=== PATIENT | female | born 1960 ===

== ENCOUNTER 2017-01-26 09:11 | Emergency (ER) | payer MEDICAID, OTHER ==
[2017-01-26 09:27] VITALS: TEMP 98.5; O2SAT 99
--- NOTE | 2017-01-26 11:15 | ED PDOC ---
Lower Extremity Pain/Injury Time Seen by Provider: 01/26/17 10:47 Chief Complaint (Nursing): Lower Extremity Problem/Injury Chief Complaint (Provider): leg pain History Per: Patient History/Exam Limitations: no limitations Additional Complaint(s): 56yo F in ED with of HTN and arthritis for eval of acute right sided post. knee pain x 4d worsening in intensity preventing her from walking admits to swelling . denies SOB, CP,discoloration to leg. denies bleeding d/o, denies hormone replacement tx, denies recent surgery, denies recent trauma to leg. - Risk Factors DVT Risk Factors: Pos: None Past Medical History Reviewed: Historical Data, Nursing Documentation, Vital Signs Vital Signs: Last Vital Signs Temp 98.5 F 01/26/17 09:25 Pulse 70 01/26/17 09:25 Resp 19 01/26/17 09:25 BP 120/76 01/26/17 09:25 Pulse Ox 99 01/26/17 09:25 - Medical History PMH: Anxiety, HTN - Surgical History Surgical History: - Family History Family History: States: Unknown Family Hx - Home Medications Home Medications: Ambulatory Orders Medication Instructions Recorded Acetaminophen 2 tab PO Q6H PRN #50 tab 06/02/16 Naproxen Sodium [Aleve] 2 tab PO Q12H PRN #30 tablet 06/02/16 - Allergies Allergies/Adverse Reactions: Allergies Allergy/AdvReac Type Severity Reaction Status Date / Time No Known Allergies Allergy Verified 06/02/16 07:14 Wells Criteria for PE - Wells Criteria for Pulmonary Embolism Clinical Signs and Symptoms of DVT: No P.E is #1 Diagnosis, or Equally Likely: No Heart Rate >100: No Immobilization at least 3 days;Surgery previous 4 weeks: No Previous, objectively diagnosed PE or DVT: No Hemoptysis: No Malignancy w/treatment within 6 months, or palliative: No Total Score: 0 Review of Systems ROS Statement: Except As Marked, All Systems Reviewed And Found Negative Constitutional: Negative for: Fever Respiratory: Negative for: SOB with Exertion, Sputum Musculoskeletal: Positive for: Leg Pain Physical Exam - Reviewed Nursing Documentation Reviewed: Yes Vital Signs Reviewed: Yes - Physical Exam Appears: Positive for: Well, Non-toxic, No Acute Distress Head Exam: Positive for: ATRAUMATIC, NORMAL INSPECTION, NORMOCEPHALIC Skin: Positive for: Normal Color, Warm, DRY Cardiovascular/Chest: Positive for: Regular Rate, Rhythm Respiratory: Positive for: CNT, Normal Breath Sounds Extremity: Positive for: Other (left leg: pedal pulses noted. tendern polpitial tender calf no discoloration no swelling) Neurologic/Psych: Positive for: Alert, Oriented - ECG O2 Sat by Pulse Oximetry: 99 - Progress ED Course And Treament: duplex US r/o DVT Medical Decision Making Medical Decision Making: US negative for DVT, most likely exacerbation of tam cyst form prev. dx. given torodol IM and advised to f.u with orthopedics for further eval, Pt stable at this time gfor d.c Disposition - Clinical Impression Clinical Impression: Tam's cyst - Patient ED Disposition Is Patient to be Admitted: No Counseled Patient/Family Regarding: Studies Performed, Diagnosis, Need For Followup - Disposition Referrals: [facility] [place] [Outside] Disposition: Routine/Home Disposition Time: 11:35 Condition: STABLE Instructions: Tam's Cyst (ED) Forms: [facility] ED School/Work Excuse Print Language: SETSWANA
--- NOTE | 2017-01-26 11:48 | US ---
HISTORY: popliteal pain/swelling to leg . PRIORS: None. FINDINGS: 2-D, color and duplex Doppler analysis of the lower extremity venous circulation using routine protocol from the femoral veins through the popliteal veins. Venous compressibility: Normal. Flow and augmentation patterns: Normal. Visualized veins upper third of calf: Normal. Tam cyst: There is a 5.5 x 2.0 cm popliteal cyst. . IMPRESSION: No sonographic or Doppler evidence for DVT in left lower extremity. Large simple popliteal cyst.
[2017-01-26 12:08] VITALS: BP 126/70; PULSE 74; RESP 18
== END 2017-01-26 12:05 | disposition home or self-care (01) ==
LOC: H.ER 09:11
DX: M71.20 Synovial cyst of popliteal space [Baker], unspecified knee (principal); I10 Essential (primary) hypertension; F41.9 Anxiety disorder, unspecified